=== PATIENT | male | born 1995 | race African-American/Black ===

== ENCOUNTER 2024-08-01 20:07 | Inpatient (IN) | payer MEDICAID ==
[~2024-08-01] VITALS: Ht 175.3 cm; Wt 74.0 kg
[2024-08-01] MEDS ORDERED: LORAZEPAM 2MG/ML INJ IV STA (20:23)
[2024-08-01 20:40] LABS: BASOPHILS % 0.6 % (0.0-2.0); EOSINOPHILS % 0.1 % (0.0-5.0); HEMATOCRIT. 44.6 % (42.0-52.0); LYMPHOCYTES % 9.4 % (20.0-50.0); MEAN CORPUSCULAR HEMOGLOBIN 29.7 pg (28.0-32.0); MEAN CORPUSCULAR HGB CONC 33.6 g/dL (31.0-37.0); MEAN CORPUSCULAR VOLUME 88.5 fL (80.0-94.0); MEAN PLATELET VOLUME 7.1 fl (7.4-10.4); MONOCYTES % 4.5 % (2.0-8.0); NEUTROPHILS % 85.4 % (40.0-76.0); PLATELET 330 x1000/uL (130-400); RED BLOOD CELL COUNT 5.04 mill/uL (4.7-6.1); RED CELL DISTRIBUTION WIDTH 14.1 % (11.6-14.6); WHITE BLOOD COUNT 7.2 x1000/uL (4.5-11.0)
[2024-08-01] MEDS: HALOPERIDOL LACTATE 5MG/ML VIAL IM STA (20:48)
[2024-08-01 20:50] LABS: CHLORIDE 105 mEq/L (98-107); SODIUM 140 mEq/L (136-145)
[2024-08-01 20:51] LABS: CARBON DIOXIDE 20 mEq/L (21-32)
[2024-08-01 20:52] LABS: CALCIUM 9.2 mg/dL (8.7-10.4)
[2024-08-01] MEDS: LORAZEPAM 2MG/ML UD SYRINGE IV NR (20:54)
[2024-08-01 20:56] LABS: CREATININE 1.3 mg/dL (0.6-1.3)
[2024-08-01 20:57] LABS: ETHANOL BLOOD < 10 mg/dL (<10); GLUCOSE 113 mg/dL (70-105); UREA NITROGEN BLOOD 9 mg/dL (9-23)
[2024-08-01 20:58] LABS: CREATINE KINASE 528 IU/L (46-171)
[2024-08-01] MEDS: LORAZEPAM 2MG/ML INJ IV ONE (21:30)
[2024-08-01 23:30] VITALS: BP 115/70; PULSE 69; RESP 16; TEMP 37.1
[2024-08-02] VITALS (12 sets, daily range): BP systolic 113–150; BP diastolic 80–90; PULSE 53–101; RESP 15–20; TEMP 36.4–37.1; O2SAT 93–100
[2024-08-02] MEDS ORDERED: IPRATROPIUM/ALBUTEROL 0.5-3(2.5)MG/3ML NEB NEB PRN (00:30)
[2024-08-02] MEDS ORDERED: CLONIDINE 0.1MG TABLET PO PRN (00:30)
[2024-08-02] MEDS ORDERED: HYDROCODONE/ACETAMINOPHEN 5/325MG TABLET PO PRN (00:30)
[2024-08-02] MEDS ORDERED: ACETAMINOPHEN 325MG TABLET PO PRN (00:30)
[2024-08-02] MEDS: ONDANSETRON HCL 4MG/2ML INJ IV PRN (03:27)
[2024-08-02] MEDS: LORAZEPAM 2MG/ML UD SYRINGE IV PRN (03:27)
[2024-08-02 06:53] LABS: BASOPHILS % 0.5 % (0.0-2.0); EOSINOPHILS % 0.3 % (0.0-5.0); HEMATOCRIT. 42.6 % (42.0-52.0); HEMOGLOBIN. 14.2 g/dL (14.0-18.0); LYMPHOCYTES % 20.6 % (20.0-50.0); MEAN CORPUSCULAR HEMOGLOBIN 29.5 pg (28.0-32.0); MEAN CORPUSCULAR HGB CONC 33.4 g/dL (31.0-37.0); MEAN CORPUSCULAR VOLUME 88.4 fL (80.0-94.0); MEAN PLATELET VOLUME 7.7 fl (7.4-10.4); MONOCYTES % 12.1 % (2.0-8.0); NEUTROPHILS % 66.5 % (40.0-76.0); PLATELET 313 x1000/uL (130-400); RED BLOOD CELL COUNT 4.82 mill/uL (4.7-6.1); RED CELL DISTRIBUTION WIDTH 14.4 % (11.6-14.6); WHITE BLOOD COUNT 7.3 x1000/uL (4.5-11.0)
[2024-08-02 06:55] LABS: CARBON DIOXIDE 25 mEq/L (21-32); CHLORIDE 106 mEq/L (98-107); POTASSIUM 3.9 mEq/L (3.5-5.1); SODIUM 142 mEq/L (136-145)
[2024-08-02 06:57] LABS: CALCIUM 9.5 mg/dL (8.7-10.4)
[2024-08-02 06:58] LABS: TROPONIN I HIGH SENSITIVITY 52 ng/L (3.0-53)
[2024-08-02 07:01] LABS: CREATININE 1.3 mg/dL (0.6-1.3)
[2024-08-02 07:02] LABS: GLUCOSE 96 mg/dL (70-105); UREA NITROGEN BLOOD 10 mg/dL (9-23)
[2024-08-02] MEDS: PANTOPRAZOLE SODIUM 40 MG/VIAL IV SCH (08:56)
[2024-08-02] MEDS: ENOXAPARIN 40MG/0.4ML SYR SUBCUT SCH (08:56)
[2024-08-02] MEDS: SODIUM CHLORIDE 0.9% 1,000 ML IV SCH (09:03)
[2024-08-03] VITALS: BP 134/83; PULSE 83; RESP 17; TEMP 36.9; O2SAT 100
[2024-08-03 04:00] VITALS: BP 146/99; PULSE 84; RESP 18; TEMP 36.7; O2SAT 100
[2024-08-03] MEDS: MVI, ADULT NO.1 10 ML, FOLIC ACID 1 MG, THIAMINE HCL 100 MG in SODIUM CHLORIDE 0.9% 1,0... IV SCH (06:26)
[2024-08-03 07:46] LABS: BASOPHILS % 0.8 % (0.0-2.0); EOSINOPHILS % 1.8 % (0.0-5.0); HEMOGLOBIN. 13.4 g/dL (14.0-18.0); LYMPHOCYTES % 23.3 % (20.0-50.0); MEAN CORPUSCULAR HEMOGLOBIN 28.9 pg (28.0-32.0); MEAN CORPUSCULAR HGB CONC 32.7 g/dL (31.0-37.0); MEAN CORPUSCULAR VOLUME 88.3 fL (80.0-94.0); MEAN PLATELET VOLUME 7.7 fl (7.4-10.4); MONOCYTES % 9.2 % (2.0-8.0); NEUTROPHILS % 64.9 % (40.0-76.0); PLATELET 285 x1000/uL (130-400); RED BLOOD CELL COUNT 4.65 mill/uL (4.7-6.1); RED CELL DISTRIBUTION WIDTH 14.5 % (11.6-14.6); WHITE BLOOD COUNT 5.2 x1000/uL (4.5-11.0)
[2024-08-03 08:00] VITALS: BP 112/85; PULSE 60; RESP 16; TEMP 36.1; O2SAT 100
[2024-08-03 08:27] LABS: CHLORIDE 107 mEq/L (98-107); POTASSIUM 4.2 mEq/L (3.5-5.1); SODIUM 141 mEq/L (136-145)
[2024-08-03 08:28] LABS: CARBON DIOXIDE 25 mEq/L (21-32)
[2024-08-03 08:29] LABS: CALCIUM 8.4 mg/dL (8.7-10.4)
[2024-08-03 08:33] LABS: CREATININE 1.2 mg/dL (0.6-1.3)
[2024-08-03 08:34] LABS: GLUCOSE 99 mg/dL (70-105); UREA NITROGEN BLOOD 15 mg/dL (9-23)
[2024-08-03 12:00] VITALS: BP 132/91; PULSE 75; RESP 17; TEMP 36.5; O2SAT 100
[2024-08-03 14:57] VITALS: BP 132/91; PULSE 75; TEMP 97.7; O2SAT 100
== END 2024-08-03 15:15 | disposition home or self-care (01) | DRG 52 ==
LOC: ER 20:07 → EDBD 21:46 → 5EST 21:46 → 6WST 08-02 21:54
PROVIDERS: ADMIT Internal Medicine; ATTEND Internal Medicine
DX: G93.41 Metabolic encephalopathy (principal); F19.10 Other psychoactive substance abuse, uncomplicated
CPT/HCPCS: 36415; 80048; 80320; 82550; 84484; 85025; 93970; 99285; A4606; J1630; J1650; J2060; J2405; J2470; J3411; J3490; J7030; G0480

== ENCOUNTER 2024-08-22 22:30 | Emergency (ER) | payer MEDICAID ==
[~2024-08-22] VITALS: Ht 170.2 cm; Wt 66.0 kg
[2024-08-22 22:52] VITALS: BP 131/78; TEMP 36.8; O2SAT 98
[2024-08-22 22:54] VITALS: PULSE 84; RESP 16; O2SAT 100
== END 2024-08-23 00:09 | disposition home or self-care (01) ==
LOC: ER 22:30
DX: Z00.00 Encounter for general adult medical examination without abnormal findings (principal)
CPT/HCPCS: 99281